=== PATIENT | male | born 1990 | race African-American/Black ===

== ENCOUNTER 2020-07-03 12:04 | Emergency (ER) | payer BC | END 2020-07-03 13:29 | disposition left against medical advice (07) | LOC: CSHERS 12:04 | DX: Z53.21 Procedure and treatment not carried out due to patient leaving prior to being seen by health care provider (principal) ==

== ENCOUNTER 2022-06-08 19:58 | Emergency (ER) | payer SELFPAY | END 2022-06-08 20:58 | disposition home or self-care (01) | LOC: CSHERS 19:58 | DX: K64.8 Other hemorrhoids (principal); I10 Essential (primary) hypertension; F17.210 Nicotine dependence, cigarettes, uncomplicated | CPT/HCPCS: 99282 ==

== ENCOUNTER 2025-02-11 09:08 | Emergency (ER) | payer SELFPAY ==
[2025-02-11] MEDS ORDERED: Ondansetron PF 4 MG/2 ML Vial ONE (10:04)
[2025-02-11 10:14] LABS: #Basophils 0.06 10x3/uL (0.0-0.2); #Eosinophils 0.35 10x3/uL (0.0-0.5); #Monocytes 0.54 10x3/uL (0.0-1.1); #Neutrophils 2.40 10x3/uL (1.5-8.4); %Basophils 1.2 % (0.0-2.0); %Eosinophils 7.1 % (0.0-6.0); %Lymphocytes 32.1 % (18.0-47.0); %Monocytes 10.9 % (0.0-10.0); %Neutrophils 48.3 % (40.0-75.0); Hematocrit 37.8 % (38.8-50.0); Hemoglobin 12.6 g/dL (13.5-17.5); Mean Corpuscular Hemoglobin 30.6 pg (27.0-33.0); Mean Corpuscular Volume 91.7 fL (81.2-95.1); Platelet Count 423 10x3/uL (150-450); Red Blood Cell (RBC) Count 4.12 10x6/uL (4.32-5.72); White Blood Cell (WBC) Count 4.96 10x3/uL (3.5-10.5)
[2025-02-11 10:42] LABS: ALT (SGPT) 12 U/L (Less than 45); AST (SGOT) 25 U/L (11-34); Albumin 3.3 g/dL (3.1-4.5); Alkaline Phosphatase 47 U/L (40-110); Anion Gap 12 mmol/L (10-20); BUN (Urea Nitrogen) 14 mg/dL (8.9-20.6); Bilirubin, Total 0.2 mg/dL (0.3-1.2); Calc. Creatinine Clearance 0 mL/min (70-130); Calcium 8.8 mg/dL (7.8-10.44); Carbon Dioxide 26 mmol/L (22-29); Chloride 109 mmol/L (98-107); Globulin 2.7 g/dL (2.4-3.5); Glucose 96 mg/dL (70-105); Potassium 4.4 mmol/L (3.5-5.1); Sodium 143 mmol/L (136-145)
[2025-02-11 10:46] LABS: Troponin I Less than 0.010 ng/mL (< 0.028)
== END 2025-02-11 11:59 | disposition home or self-care (01) ==
LOC: CSHERS 09:08
DX: K52.9 Noninfective gastroenteritis and colitis, unspecified (principal); I10 Essential (primary) hypertension; F17.210 Nicotine dependence, cigarettes, uncomplicated; Z20.822 Contact with and (suspected) exposure to COVID-19
CPT/HCPCS: 36415; 71045; 80053; 83605; 84484; 85025; 87428; 93005; 96374; J2405